=== PATIENT | male | born 1955 | race Caucasian/White ===

== ENCOUNTER 2024-02-17 13:22 | Outpatient (CLI) | payer MEDICARE, SELFPAY ==
--- NOTE | ~2024-02-17 | PE_ITS ---
EXAMINATION: PET_PETPSMAST_PT DATE: 02/17/2024 15:46 INDICATION: Prostate cancer TECHNIQUE: 3.969 mCi of Locametz Ga-68([id number]) was administered i.v. Low dose computed farrah ography (CT) images were acquired from the base of the brain to the base of the brain to the proximal thighs for attenuation correction and anatomic localization. Positron emission tomography (PET) imag es were acquired in the same distribution beginning 77 minutes after injection. Images including fuse d PET/CT images were reconstructed in axial, coronal, and sagittal planes. Automated exposure control technique was employed. The dose-length product was 922.10mGy-cm. COMPARISON: None FINDINGS: Musculoskeletal: There is diffuse patchy sclerosis of the bones with innumerable PSMA avid bone lesions becoming essen tially confluent throughout the visualized axial and appendicular skeleton consistent with widespread osseous metastatic disease. Head/neck: Typical pattern of symmetric physiologic increased activity in the lacrimal, parotid and submandibula r glands as well as along the mucosa of the nasal and oral cavities. No pathologically enlarged or PS MA avid cervical lymphadenopathy. Chest: No suspicious pulmonary nodules, pneumonia, pulmonary edema or pleural effusion. Heart size is normal . Atherosclerotic coronary artery calcifications. No pericardial effusion. Aortic valve calcification . Thoracic aorta is normal in caliber. No pathologically enlarged or PSMA avid thoracic lymphadenopat hy. Small sliding-type hiatal hernia. Abdomen/pelvis/proximal thighs: Physiologic renal accumulation and excretion of activity in the kidneys, bladder and along portions o f ureters. 5.4 cm low-attenuation photopenic cyst at the lower pole of the left kidney. Normal degree and slightly heterogenous pattern of increased uptake throughout the liver and spleen without radiol ogic correlate or dominant PSMA avid lesion. The gallbladder, pancreas and bilateral adrenal glands a re normal. Moderate uptake scattered throughout the bowels with typical duodenal and proximal jejunal predominance and without radiologic correlate, also likely physiologic. Normal appendix. There are 3 FDG avid left external iliac chain lymph nodes the largest almost FDG avid measures 2.4 x 1.9 cm wit h maximal SUV of 13.6 consistent with regional metastatic disease. Prostatomegaly measuring 5.2 x 5.1 cm with asymmetric increased uptake at the right side of the prostate with maximal SUV of 18.4 consi stent with primary prostate cancer. IMPRESSION: 1. Increased PSMA uptake within the right side of the enlarged prostate consistent with hemorrhage pr ostate cancer. 2. 3 PSMA avid left external iliac chain lymph nodes consistent with regional metastatic disease. 3. Extensive sclerosis of the bones with innumerable foci of associated increased uptake, becoming ne andrade confluent consistent with widespread osseous metastatic disease. Reviewed, dictated and finalized at location A. IMPRESSION: 1. Increased PSMA uptake within the right side of the enlarged prostate consist ent with hemorrhage prostate cancer. 2. 3 PSMA avid left external iliac chain lymph nodes consistent with regional m etastatic disease. 3. Extensive sclerosis of the bones with innumerable foci of associated increas ed uptake, becoming nearly confluent consistent with widespread osseous metasta tic disease.
== END 2024-02-17 13:23 | disposition home or self-care (01) ==
LOC: ANHIMG 13:24
PROVIDERS: Visit Provider Urology
DX: C61 Malignant neoplasm of prostate (principal)
CPT/HCPCS: 78815; A9596

== ENCOUNTER 2024-04-12 10:24 | Outpatient (CLI) | payer MEDICARE, SELFPAY ==
[2024-04-12 12:56] LABS: INR 1.1; Prothrombin Time 14.1 Seconds (11.1-14.7)
[2024-04-12 12:57] LABS: Partial Thromboplastin Time 29.1 Seconds (22.3-36.8)
== END 2024-04-12 10:25 | disposition home or self-care (01) ==
PROVIDERS: PCP Internal Medicine; Visit Provider Surgery
DX: C61 Malignant neoplasm of prostate (principal); Z01.818 Encounter for other preprocedural examination
CPT/HCPCS: 36415; 85610; 85730

== ENCOUNTER 2024-04-18 03:25 | Day surgery (SDC) | payer MEDICARE, SELFPAY ==
--- NOTE | 2024-04-11 15:40 | PC.NURSE ---
Report to the Outpatient Waiting Room, entrance under the green pavilion located off [facility], at time _10:30 AM on date ___04/18/24____. Planned Procedure Time: _12:30 PM . Time changes happen often and if your time is changed the preop area will call you the afternoon before. - You and your visitor will be asked to self-screen and do not enter if you have any COVID symptoms. - A mask is optional within the hospital at this time. Patients may have clear liquids (water, carbonated beverages, clear teas, apple juice) until 3 hours prior to surgery ( 9:30 AM)with a maximum of 20 ounces. - No food from midnight until time of surgery - Infants may have breast milk until 4 hours before surgery, infant formula 6 hours prior to surgery. - Children will be allowed to drink immediately following surgery. If applicable, please bring a bottle or sippy cup to assist with drinking. Juice, water, soda, and popsicles are readily available. For infants on formula, please bring formula the day of surgery. Pacifiers are allowed. Take the following medications with a SIP of water the morning of surgery: ___BUSPIRONE, SERTRALINE DO NOT STOP ANY OF YOUR OTHER PRESCRIPTION MEDICATIONS PRIOR TO SURGERY ?EXCEPT THE FOLLOWING Medications to discontinue per physician NONE Please no make-up, nail bengali, hairspray, perfume, deodorant, or body powder the day of surgery. No jewelry (including any body piercings) or valuables the day of surgery, leave them at home. Please take a shower or bath the night before, or the morning of, surgery with an antibacterial soap. Wear comfortable, loose fitting clothing. Children are encouraged to wear pajamas. - Jewelry must be removed prior to entering the operating room. Rings and piercings that are not removed may be cut off. - The hospital will not accept responsibility for valuables. - Please leave all valuables, including medications, at home the day of surgery. If you are going home after surgery, a licensed emergency vehicle driver must drive you home. - NO public transportation without another adult if you receive anesthesia. - We recommend that an adult stay with you for 24 hours following discharge. - We also recommend that you do not drive, make important decision, drink alcoholic beverages, or take any drugs that were not prescribed by your health care provider for at least 24 hours after your discharge time. Follow any additional instructions given to you from your surgeon. If you or anyone in your household have experienced Covid symptoms in the past week, please notify your surgeon or the nurse liaison at the phone number below for possible testing. Telephone instructions given to __PATIENT and asked if any additional questions and then verbalized understanding. Patient advised to call surgeon office or pre surgery nurse liaison [phone] if any additional questions.
[2024-04-11 15:47] VITALS: BMI 30.2
--- NOTE | ~2024-04-18 | XR_ITS ---
EXAMINATION: XR fl guide central line place DATE: 04/18/2024 13:01 INDICATION: Port placement. TECHNIQUE: A single intraoperative fluoroscopic view of the chest was obtained. I was not present. Fl uoroscopy exposure time was 36 seconds. COMPARISON: Chest single view 04/18/2024 FINDINGS: There is a left subclavian port with tip in right atrium. IMPRESSION: 1. Port tip in right atrium. Reviewed, dictated and finalized at location A.
--- NOTE | ~2024-04-18 | XR_ITS ---
EXAMINATION: XR chest port-a-cath/central DATE: 04/18/2024 11:59 INDICATION: Port placement. TECHNIQUE: A single frontal view of the chest was obtained on 2 radiographs. COMPARISON: PET/CT 02/17/2024 FINDINGS: There is no pneumonia, pleural effusion, or pneumothorax. The heart size is normal. There i s a left subclavian port with tip in proximal region. There is widespread sclerosis of the bones. IMPRESSION: 1. Poor tip in proximal right atrium. 2. Widespread sclerosis of the bones, consistent with metastatic disease. Reviewed, dictated and finalized at location A.
--- NOTE | 2024-04-18 07:42 | PM.SD2 ---
Same Day Admit/Disch: HPI History of Present Illness Chief complaint: prostate CA Narrative: Pradeep Meza is a 68 year old male with schizophrenia who will be receiving chemotherapy for prostate cancer. He is taken to surgery as an outpatient today for placement of a Port-A-Cath PMFSH Family History Family History Other Family history of malignant neoplasm Family history of osteoarthritis Social History Social History Smoking packs per day: 3 Smoking cigarettes per day: 60.0 Years smoked: 7 Smoking pack-years: 21.00 Smoking status: Former smoker Tobacco type: cigarettes Smoking end date: 10/17/82 Alcohol intake: never Living arrangements: with friend(s) Spiritual care concerns: No Same Day Admit/Disch: Med Pre-admit Medications Home Medications Medication Instructions Recorded Confirmed Type aripiprazole lauroxil 882 mg/3.2 882 mg IM MONTHLY 04/05/24 04/18/24 History mL suspension, ext.rel. IM syringe buspirone 5 mg tablet 5 mg PO TID 04/05/24 04/18/24 History deutetrabenazine 12 mg tablet 12 mg PO BID 04/05/24 04/18/24 History finasteride 5 mg tablet 5 mg PO DAILY 04/11/24 04/18/24 History naproxen 500 mg tablet 500 mg PO DAILY PRN Pain 04/11/24 04/18/24 History sertraline 50 mg tablet 50 mg PO DAILY 04/11/24 04/18/24 History cholecalciferol (vitamin D3) 1,250 50,000 unit PO WEEKLY 04/18/24 04/18/24 History mcg (50,000 unit) capsule ibuprofen 600 mg tablet 600 mg PO Q6H PRN pain #14 tabs 04/18/24 Rx oxycodone-acetaminophen 5 mg-325 0.5 - 1 tablet PO Q6H PRN pain #10 04/18/24 Rx mg tablet tabs Review of Systems Review of Systems All systems reviewed & are unremarkable except as noted in HPI and below (HPI) Exam Const: General: comfortable, no acute distress, alert and awake HENMT: Head: normocephalic and atraumatic Mouth: Yes Normal oral and palatal mucosa present Eyes: Conjunctivae: conjunctivae normal Pupils: Equal, round and reactive pupils present EOM: EOMs intact bilaterally Neck: Neck: normal visual inspection, no lymphadenopathy and nontender Resp: Effort & Inspection: normal respiratory effort Auscultation: clear to auscultation bilaterally Cardio: Rate: regular rate Rhythm: regular rhythm Heart sounds: no gallops, no murmurs and no rubs GI: Inspection: non-distended GI Palp: Yes Soft to palpation, No Tenderness to palpation present (GI), No Hepatomegaly present and No Splenomegaly present Skin: Lesions: no lesions Rashes: no rashes Neuro: General: no focal motor deficits and CN's II-XI intact bilaterally Cranial nerves: Yes Equal, round and reactive pupils present, Yes Bilaterally intact EOM present, Yes facial symmetry and Yes Midline tongue present Speech: normal speech Motor exam (neuro): 5/5 motor strength present throughout and Motor abnormalities not present Extrem: General: no clubbing, cyanosis or edema and edema Psych: Affect: normal affect Thought process: Normal thought process present Insight: Good insight present (Psych) DS: Summary Time Spent with Patient Time attestation: Total time spent providing and/or coordinating discharge services: DS: Admitting Diagnosis Discharge Date 04/18/2024 Admitting Diagnosis Prostate cancer-to be treated with chemotherapy Inadequate venous uufbnk-[id number]-V-Cath will be placed today under fluoroscopy and possibly with ultrasound. I discussed the procedure, risks, benefits, alternatives with the patient. All questions were answered. Complications were discussed as well. Patient wishes to go ahead. Schizophrenia DS: Discharge Diagnosis Discharge Diagnosis (1) Prostate cancer: Code(s): C61 - Malignant neoplasm of prostate Status: Chronic (2) Admission for fitting of Port-A-Cath: Code(s): Z45.2 - Encounter for adjustment and management of vascular access
--- NOTE | 2024-04-18 07:44 | WPDHPUPDATE1 ---
History and Physical Update Update Date/Time: 04/18/24 07:44 History and Physical has been reviewed, including an updated exam of the patient. There are NO changes in the patient's condition. Risks, benefits, and alternatives have been discussed and questions answered. Patient agrees to proceed with procedure.
[2024-04-18 10:16] VITALS: BP 147/66; PULSE 51; RESP 18; TEMP 36.7; O2SAT 99
[2024-04-18] MEDS: KETOROLAC 15 MG/ML VIAL (*BKC) IV PUSH (10:17)
--- NOTE | 2024-04-18 10:31 | P.PNAN_ITS ---
Anes - Initial Pre Proc Eval Procedure: Operation Date: 04/18/24 11:30 Proposed Procedures p Insertion Jesus Cath - Cristi Castillo MD Date/Time: 04/18/24 10:31 Surgeon: Cristi Castillo MD Pre Op Diagnosis: prostate CA Patient Data Age: 68 Gender: M Height: 1.78 m Weight: 96.4 kg Last Vital Signs Temp 36.7 C 04/18/24 10:16 Pulse 51 L 04/18/24 10:16 Resp 18 04/18/24 10:16 BP 147/66 H 04/18/24 10:16 Pulse Ox 99 04/18/24 10:16 O2 Del Method Room Air 04/18/24 10:16 Allergies Allergy/AdvReac Type Severity Reaction Status Date / Time haloperidol Allergy Unknown Other Verified 04/18/24 10:22 Home Medications Medication Instructions Recorded Confirmed Type aripiprazole lauroxil 882 mg/3.2 882 mg IM MONTHLY 04/05/24 04/18/24 History mL suspension, ext.rel. IM syringe buspirone 5 mg tablet 5 mg PO TID 04/05/24 04/18/24 History deutetrabenazine 12 mg tablet 12 mg PO BID 04/05/24 04/18/24 History finasteride 5 mg tablet 5 mg PO DAILY 04/11/24 04/18/24 History naproxen 500 mg tablet 500 mg PO DAILY PRN Pain 04/11/24 04/18/24 History sertraline 50 mg tablet 50 mg PO DAILY 04/11/24 04/18/24 History cholecalciferol (vitamin D3) 1,250 50,000 unit PO WEEKLY 04/18/24 04/18/24 History mcg (50,000 unit) capsule Patient hx anesthesia problems: none Family hx anesthesia problems: none Results Review: All pre-operative results and documents have been reviewed as part of the pre- operative evaluation. [facility] Family History Family History Other Family history of malignant neoplasm Family history of osteoarthritis Social History Social History Smoking packs per day: 3 Smoking cigarettes per day: 60.0 Years smoked: 7 Smoking pack-years: 21.00 Smoking status: Former smoker Tobacco type: cigarettes Smoking end date: 10/17/82 Alcohol intake: never Living arrangements: with friend(s) Spiritual care concerns: No Anes - Eval Final PreProcedure Day of Procedure 04/18/24 10:31 Patient weight: obese Heart: regular rate and rhythm Lungs: decreased breath sounds Airway: Mallampati scale class II Neurological: other (alert) Last oral intake: >/= 8 hours ASA classification: IV Emergent: no Anesthetic plan: proceed Anesthesia type and monitoring: general GIVS and standard monitoring Results Review: All pre-operative results and documents have been reviewed as part of the pre- operative evaluation. Informed Consent: The patient's anesthetic plan and its attendant risks and benefits were discussed with the patient/family/POA. Questions were solicited and answers provided to the satisfaction of the patient/family/POA.
[2024-04-18] MEDS: ceFAZolin 2 GM/D5W 50 ML 2 GM/50 ML BAG IVPB (10:49)
[2024-04-18] MEDS: BUPIVACAINE/EPINEPHRINE 0.5% 10 ML VIAL 20 ML INFILTRATE (11:08)
[2024-04-18] MEDS: HEPARIN SODIUM 1,000 UNITS/ML VIAL 1000 UNITS IV PUSH (11:17)
[2024-04-18 11:38] VITALS: BP 129/54; PULSE 51; RESP 18; O2SAT 97
[2024-04-18] MEDS: LACTATED RINGERS 1,000 ML 30 ML IV CONT (11:38)
[2024-04-18 12:00] VITALS: BP 132/61; PULSE 45; RESP 18; O2SAT 95
--- NOTE | 2024-04-18 12:08 | P.OP_ITS ---
Procedure Note - Detailed Date of Procedure 04/18/24 Pre-op Diagnosis Metastatic prostate cancer, inadequate venous access Post-op Diagnosis Same Procedure Performed Placement left subclavian vortex Port-A-Cath under fluoroscopy Surgeon Cristi Castillo MD Principal Archaeologist Mariaa Cook [facility] Anesthesia MAC and Local Indications Patient known to have both regional metastases of prostate cancer as well as extensive bony metastases. Plan is for him to have chemotherapy and he is taken to surgery now for placement of a Port-A-Cath for this purpose Findings None significant. Port-A-Cath tip in the distal SVC right atrial junction Description of Procedure Patient was taken to surgery and anesthesia was introduced. The left subclavian and left neck were prepped and draped. The proposed incision was marked on the skin under the left clavicle. Local was infiltrated in the area of the anticipated incision and in the deeper tissues. Incision was made and dissection was carried down through the subcutaneous. We continued the dissection below the pectoralis major fascia. I then created a subfascial pocket. Cautery was used for hemostasis. I then infiltrated local under the left clavicle. A single puncture was used to cannulate the left subclavian vein. A guidewire passed readily into the superior vena cava. This was documented by C-arm fluoroscopy. I then used fluoroscopy to measure the length of Port-A-Cath that would be needed. Port-A-Cath was cut to the appropriate length. I passed an introducer and sheath over the guidewire again under fluoroscopic guidance. I then removed the introducer and guidewire and passed the Port-A-Cath tubing through the sheath and into the superior vena cava. Under fluoroscopy the Port-A-Cath looked to be in good position. I then removed the sheath and recheck the fluoroscopic images. Port-A-Cath was in a good position in the distal SVC right atrial junction. I then checked a Port-A-Cath with heparin. It aspirated blood easily and flushed well with heparin. This was done several different times with good result. I sutured the Port-A-Cath to the pectoralis major muscle with 3-0 silk suture. I checked it again with similar good results of aspiration of blood and flushing with heparin. We then closed the wound with running suture of 2-0 Vicryl. The skin was closed with subcuticular running 4-0 Monocryl skin suture. The wound was dressed with Exofin surgical adhesive. Patient was then awakened and taken to recovery in good condition. Sponge and needle counts were correct x2. Estimated Blood Loss -5 Drains No Packing No Pathology None sent Complications None Condition Stable Disposition Same day [facility] Billing Surgery - Charge Forward: Surgery Billing (Placement Port-A-Cath under fluoroscopy)
[2024-04-18 12:30] VITALS: BP 155/67; PULSE 47; RESP 18
== END 2024-04-18 13:00 | disposition home or self-care (01) ==
PROVIDERS: PCP Internal Medicine; Visit Provider Surgery
PROC: (CPT 36561; principal; 2024-04-18 11:30)
DX: C61 Malignant neoplasm of prostate (principal); C79.51 Secondary malignant neoplasm of bone; F20.0 Paranoid schizophrenia; E66.9 Obesity, unspecified; Z68.30 Body mass index [BMI] 30.0-30.9, adult; Z79.1 Long term (current) use of non-steroidal anti-inflammatories (NSAID); Z87.891 Personal history of nicotine dependence; Z80.9 Family history of malignant neoplasm, unspecified
CPT/HCPCS: 36561; 36415; 77001; 85610; 85730; C1788; J0690; J1644; J1885; J2704; J3010; J7030; J7120

== ENCOUNTER 2024-10-11 09:18 | Outpatient (CLI) | payer MEDICARE, SELFPAY ==
--- NOTE | ~2024-10-11 | CT_ITS ---
EXAMINATION: CT abdomen pelvis w con DATE: 10/11/2024 11:32 INDICATION: Prostate cancer. TECHNIQUE: Computed tomography (CT) of the abdomen and pelvis was performed with 100 mL Omnipaque 350 intravenous contrast. Automated exposure control and iterative reconstruction technique were employe d. The dose-length product was 2047.25 mGy-cm. COMPARISON: PET/CT 02/17/2024 FINDINGS: The visualized portions of the lung bases demonstrate mild atelectasis. No pleural effusion . The heart size is normal. No pericardial effusion. There is a catheter tip in right atrium. There i s a moderate-sized sliding hiatal hernia. The liver, gallbladder, spleen, pancreas, and adrenal gland s are normal. There are cysts in the kidneys measuring up to 5.3 cm on the left. There is a parenchym al calcification in right kidney. The prostate is mildly enlarged. There is diverticulosis of the col on without evidence of diverticulitis. There are no dilated loops of bowel. The appendix is normal. T here are no pathologically enlarged lymph nodes. There is no free intraperitoneal fluid. There is sub cutaneous fat stranding in anterior abdominal wall, which may be injection sites or other inflammatio n. There is widespread sclerosis throughout all the bones. There are old bilateral rib fractures. IMPRESSION: 1. Stable widespread sclerosis throughout all of the bones, consistent with metastatic disease. 2. Moderate-sized sliding hiatal hernia. Reviewed, dictated and finalized at location A. BILITATION WORKER IMPRESSION: 1. Stable widespread sclerosis throughout all of the bones, consistent with met astatic disease. 2. Moderate-sized sliding hiatal hernia.
--- NOTE | ~2024-10-11 | NM_ITS ---
EXAMINATION: NM bone scan whole body DATE: 10/11/2024 13:37 INDICATION: Prostate cancer TECHNIQUE: 25.7 mCi Tc-99m HDP was administered intravenously. Delayed whole-body scintigrams were o btained. COMPARISON: CT dated 10/11/2024 and PET/CT dated 02/17/2024 FINDINGS: SuperScan with diffuse increased uptake of the bones. There is corresponding diffuse sclerosis eviden t on prior CT and diffuse increased bone activity on prior the PSMA PET/CT consistent with diffuse me tastatic prostate cancer. IMPRESSION: 1. Super scan consistent with widespread osseous metastatic prostate cancer throughout the axial and appendicular skeleton. Reviewed, dictated and finalized at location B. [employer] IMPRESSION: 1. Super scan consistent with widespread osseous metastatic prostate cancer thr oughout the axial and appendicular skeleton.
== END 2024-10-11 09:19 | disposition home or self-care (01) ==
PROVIDERS: PCP Internal Medicine; Visit Provider Internal Medicine Hematology & Oncology
DX: C61 Malignant neoplasm of prostate (principal); K44.9 Diaphragmatic hernia without obstruction or gangrene; R93.7 Abnormal findings on diagnostic imaging of other parts of musculoskeletal system
CPT/HCPCS: 74177; 78306; A9503; Q9967

== ENCOUNTER 2025-02-28 07:11 | Outpatient (CLI) | payer MEDICARE, SELFPAY ==
--- NOTE | ~2025-02-28 | CT_ITS ---
CT of the Abdomen and Pelvis: Indication: Prostate cancer Technique: 2.5 mm axial scans were obtained through the abdomen and pelvis following intravenous adm inistration of 100 cc of Omnipaque 350. Dose reduction technique was used on this scan by utilizing a utomated exposure control and iterative reconstruction technique. The dose-length product (DLP) was 8 05.93 mGy-cm. COMPARISON: 10/11/2024 Findings: Scans through the lung bases are unremarkable. Small hiatal hernia present with mild diste ntion of the distal esophagus. The liver, spleen, pancreas, gallbladder, adrenals and right kidney are within normal limits. Left re nal cyst present. No evidence of aortic aneurysm. No lymphadenopathy. No bowel obstruction or bowel wall thickening. There is no evidence to suggest acute appendicitis. Images through the pelvis were performed. Urinary bladder unremarkable. No gross pelvic mass seen. No ascites. 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 There is mild chronic loss of height of T9 and T10. Impression: Diffuse osteoblastic metastatic disease. Small hiatal hernia. Reviewed, dictated and finalized at [facility]. Impression: Diffuse osteoblastic metastatic disease. Small hiatal hernia.
--- NOTE | ~2025-02-28 | NM_ITS ---
EXAMINATION: NM bone scan whole body DATE: 02/28/2025 11:34 INDICATION: Prostate cancer TECHNIQUE: 25.8 mCi Tc-99m HDP was administered intravenously. Delayed whole-body scintigrams were o btained. COMPARISON: Bone scan dated FINDINGS: Persistent super scan with diffuse subtly heterogeneous increased uptake of the bones with diffuse sc lerosis evident on prior CT and diffuse increased uptake on prior PSMA PET/CT consistent with diffuse metastatic prostate cancer. IMPRESSION: 1. Unchanged super scan consistent with widespread osseous metastatic prostate cancer throughout the axial and appendicular skeleton. Reviewed, dictated and finalized at location A.
--- OUTSIDE RECORDS SUMMARY | 2025-02-28 07:14 | XMS_ITS | Clinical Summary ---
Author Organization [facility] Carlos carrington [facility] Address [address] [address] Care Team Providers Care Supervisor Education Name Role Phone Tres Gray MD Primary Care Provider [phone] Allergies Active Allergy Reactions Criticality Noted Date Comments Haloperidol Lactate Other (See Comments) 2023 . Medications enzalutamide (Xtandi) 80 mg Tablet Take by mouth daily. Active multivitamin (DAILY-TAWANA) tablet Take 1 Tablet by mouth daily. Active deutetrabenazi ne (Austedo) 12 mg Tablet tablet Take by mouth. Activ e busPIRone (BUSPAR) 5 mg tablet Take 5 mg by mouth 3 times daily. Active ARIPiprazole lauroxil ER (Aristada) 882 mg/3.2 mL suspension,ext ended rel syring Inject 882 mg by intramuscular injection one time only. Active predniSONE (DELTASONE) 5 mg tablet Take 1 Tablet (5 mg) by mouth 2 times daily with meals. 60 Tablet 6 Active OLANZapine (ZyPREXA ZYDIS) 5 mg Tablet, Rapid Dissolve Place 5 mg inside cheek daily at bedtime. Active Active Problems No known active problems Encounters Date Type Department Care Team Description 02/26/2025 Orders Only [facility] Oncology and Hematology - [place] [address] [place] [address] Zack Villatoro MD 02/19/2025 Orders Only [facility]ology - [place] [address] [place] [address] Zack Villatoro MD 02/18/2025 Orders Only [facility]ematology - [place] [address] [place] [address] Zack Villatoro MD Prostate cancer ([facility]/HCC) 02/04/2025 Orders Only [facility]ematology - [place] [address] Zack Villatoro MD Prostate cancer ([facility]/HCC) 01/25/2025 Orders Only [facility]ology - [place] [address] [place] [address] Zack Villatoro MD 01/24/2025 11:30 AM CDT Office Visit [facility] Hematology - [place] [address] [place] [address] Zack Villatoro MD Prostate cancer ([facility]) (Primary Dx) 01/22/2025 Orders Only [facility] Hematology - [place] [address] [place] [address] Zack Villatoro MD 01/21/2025 Orders Only [facility] Hematology - [place] [address] [place] [address] Zack Villatoro MD Prostate cancer ([facility]/HCC) 01/07/2025 Orders Only [facility] Hematology - [place] [address] [place] [address] Zack Villatoro MD Prostate cancer ([facility]/HCC) 12/24/2024 Orders Only [facility] Oncology and Hematology - [place] [address] [place] [address] Zack Villatoro MD Prostate cancer ([facility]/HCC) 12/20/2024 Orders Only [facility] Oncology and Hematology - [place] [address] [place] [address] Zack Villatoro MD 12/20/2024 Abstract [facility] Oncology and Hematology - [place] [address] [place] [address] Zack Villatoro MD 12/13/2024 1:[address] PATROL PILOT Office Visit [facility] Oncology and Hematology [facility] [address] [place] [address] Zack Villatoro MD Prostate cancer (CMS/HCC) (Primary Dx) 12/10/2024 Orders Only [facility] Oncology and Hematology [facility] [address] [place] [address] Zack Villatoro MD Prostate cancer (CMS/HCC) from Last 3 Months Family History Medical History Relation Name Comments Lung Cancer Father Relation Name Status Comments Father Social History Tobacco Use Types Packs/Day Years Used Date Smoking Tobacco: Former Cigarettes 3 11 1982 Smokeless Tobacco: Never Tobacco Cessation:Counseling Given: Not Answered Alcohol Use Standard Drinks/Week Comments Not Currently 0 (1 standard drink = 0.6 oz pur e alcohol) Sex and Gender Information Value Date Recorded Sex Assigned at Not on file Legal Sex Male 11:30 AM CDT Gender Identity Not on file Sexual Orientation Not on file Last Filed Vital Signs Vital Sign Reading Time Taken Comments Blood Pressure 139/84 01/24/2025 11:34 AM CDT Pulse 68 01/24/2025 11:34 AM CDT Temperature 36.2 C (97.1 F) 01/24/2025 11:34 AM CDT Respiratory Rate 15 01/24/2025 11:34 AM CDT Oxygen Saturation 95% 01/24/2025 11:34 AM CDT Inhaled Oxygen Concentration - - Weight 98.4 kg (217 lb) 01/24/2025 11:34 AM CDT Height 177.8 cm (5' 10 ) 03/26/2024 3:25 PM CDT Body Mass Index 31.14 03/26/2024 3:25 PM CDT Plan of Treatment Upcoming Encounters Date Type Department Care Team (Late st Contact Info) Description 03/07/2025 11:30 AM CDT Office Visit [facility] Oncology and Hematology [place] [address] [place] [address] Zack Villatoro MD [address] [place] [address] Health Maintenance Due Date Last Done Comments Pre-Diabetes and Diabetes Screening 1955 DTAP/TDAP/TD VACCINES (1 - Tdap) 1974 COLORECTAL SCREENING 2000 Colorectal Cancer Screening 2000 FIT-DNA Q 3 years 2000 FIT/FOBT Q 1 year 2000 Flex Sig/CT Colonography Q 5 years 2000 PNEUMOCOCCAL VACCINE 50+ YEARS (1 of 1 - PCV) 12/11/19 06 ZOSTER VACCINE (1 of 2) 2005 Abdominal Aortic Aneurysm (AAA) Screening 2020 INFLUENZA VACCINE (#1) 2024 RSV VACCINE (60+ or ) (1 - 1-dose 75+ series) 2030 Procedures Procedure Name Priority Date/Time Associated Diagnosis Comments BASIC METABOLIC PANEL Routine 02/15/2025 3:08 PM CDT COMPREHENSIVE METABOLIC PANEL Routine 02/15/2025 2:02 PM CDT COMPREHENSIVE METABOLIC PANEL Routine 01/24/2025 2:59 PM CDT BASIC METABOLIC PANEL Routine 01/24/2025 2:25 PM CDT COMPREHENSIVE METABOLIC PANEL Routine 01/24/2025 2:23 PM CDT BASIC METABOLIC PANEL Routine 01/18/2025 3:13 PM CDT COMPREHENSIVE METABOLIC PANEL Routine 01/18/2025 11:42 AM CDT BASIC METABOLIC PANEL Routine 01/03/2025 11:54 AM CDT COMPREHENSIVE METABOLIC PANEL Routine 01/03/2025 11:52 AM CDT CBC WITH DIFFERENTIAL Routine 12/13/2024 2:[address] PATROL PILOT from Last 3 Months Results * BASIC METABOLIC PANEL (02/15/2025 3:08 PM CDT) Only the most recent of4 resultswithin the time period is included. Blood us Zack Villatoro MD CHEMISTRY ORDERABLES Final Resu lt * COMPREHENSIVE METABOLIC PANEL (02/15/2025 2:02 PM CDT) Only the most recent of5 resultswithin the time period is included. Blood Zack Villatoro MD CHEMISTRY ORDERABLES Final Resu lt * CBC WITH DIFFERENTIAL (12/13/2024 2:[address] PATROL PILOT) Blood Zack Villatoro MD HEMATOLOGY ORDERABLES Final Res ult from Last 3 Months [facility] [employer] [facility] [place] [address] Care Teams Supervisor Education Relationship Specialty Start Date End Date Tres Gray MD [address] [facility] [address] [place] [address] PCP - General Internal Medicine 03/26/24
--- OUTSIDE RECORDS SUMMARY | 2025-02-28 07:14 | XMS_ITS | Encounter Summary ---
Author Organization [facility] JUAN [address] [facility] Address [address] [place] [address] Care Team Providers Care Hot Mill Operator Name Role Phone Tres Gray MD Primary Care Provider [phone] Encounter Details Date Type Department Care Team (Late Contact Info) Description 02/26/2025 Orders Only [facility] Oncology and Hematology - [place] [address] [place] [address] Zack Villatoro MD [address] [place] [address] Social History Tobacco Use Types Packs/Day Years Used Date Smoking Tobacco: Former Cigarettes 3 11 1 2 1982 Smokeless Tobacco: Never Alcohol Use Standard Drinks/Week Comments Not Currently 0 (1 standard drink = 0.6 oz pur e alcohol) Sex and Gender Information Value Date Recorded Sex Assigned at Not on file Legal Sex Male 11:30 AM CDT Gender Identity Not on file Sexual Orientation Not on file documented as of this encounter Plan of Treatment Upcoming Encounters Date Type Department Care Team (Late Contact Info) Description 03/07/2025 11:30 AM CDT Office Visit [facility] Oncology and Hematology - [place] [address] [place] [address] Zack Villatoro MD [address] [place] [address] documented as of this encounter Procedures Procedure Name Priority Date/Time Associated Diagnosis Comments COMPREHENSIVE METABOLIC PANEL Routine 02/15/2025 2:02 PM CDT documented in this encounter Results * COMPREHENSIVE METABOLIC PANEL (02/15/2025 2:02 PM CDT) Blood us Zack Villatoro MD CHEMISTRY ORDERABLES Final Resu lt documented in this encounter Visit Diagnoses Not on filedocumented in this encounter Care Teams Hot Mill Operator Relationship Specialty Start Date End Date Tres Gray MD [address] [facility] [address] [place] [address] PCP - General Internal Medicine 03/26/24 documented as of this encounter
--- OUTSIDE RECORDS SUMMARY | 2025-02-28 07:14 | XMS_ITS | Data Portability ---
Author Organization [place] [facility] Address [address] [facility] [place] [address] Assessment No assessment recorded. Plan of Treatment Reminders Order Date Submit Date Provider Last Modified By Organization Details Last Modified Time Details Appointments None recorded. Lab vitamin D, 25-hydroxy , total, serum 2017 [facility], [address] [place], [place] [address] [address], [address], [place], [address], 8 16:55:35 TSH + free T4, serum 2017 018 [facility], [address] [place] [address], [address], [place], [address], 8 16:55:36 lipid panel, serum 2017 018 [facility], [address] [place] [address], [address], [place], [address], 8 16:55:36 CMP, serum or plasma 2017 018 [facility], [address] [place] [address], [address], [place], [address], 8 16:55:36 CK (creatine kinase), total, serum 2017 018 [facility], [address] [place], [place] [address] [address], [address], [place], [address], 8 16:55:35 HbA1c (hemoglobi n A1c), blood 2017 018 [facility], [address] [facility] [address], [address], [place], [address], 8 16:55:36 Referral colonoscop y referral - Please call patient to schedule appt. Thank you 2017 018 vinicius Jenkins MD, [address] [facility], [place], [address], 8 09:49:03 Procedures None recorded. Surgeries None recorded. Imaging None recorded. Medication Orders Kenalog 40 mg/mL suspension for injection 2014 015 [facility] Not available 8 16:23:44 prednisone 20 mg tablet 2014 015 [facility] [employer] [address], [address] [place], [address], 8 16:24:04 omeprazole 20 mg capsule,de layed release 2014 015 [facility] [employer], [address] [place], [address], 8 16:23:59 Patient TargetsNo targets recorded. Patient InstructionsNo instructions recorded. Reason for Referral Colonoscopy Referral for Scr eening for malignant neoplasm of colon he has never had a colonoscopy Please call patient to schedule appt. Thank you Referring Physician: Nazario Skinner, Family Medicine, Encounter Date: 01/06/2018 Problems Name Problem SNOMED Code Status Onset Date Resolution Date Notes Provider Name and Address Organization Details Recorded Time Paranoid schizophren ia 42016525 Active 2017 Nazario Skinner PA-C Attn: Cortez cedeño,[address] [place], [address], [facility] 8 16:50:17 Diabetes mellitus screening Active 2017 Nazario Skinner PA-C Attn: Cortez cedeño,[address] [facility], [place], [address], [place] [facility] 8 16:52:23 Hyperlipide jair screening Active 2017 Nazario Skinner PA-C Attn: Cortez g,[address] [facility], [place], [address], [place] [facility] 8 16:53:02 Obese 264629047 Active 2017 Nazario Skinner PA-C Attn: Accountpriscilla g,[address] [facility], [place], [address], [place] [facility] 8 16:53:20 Screening for malignant neoplasm of prostate Active 2017 brother age 68 of prostate cancer Nazario Skinner PA-C Attn: Accountpriscilla g,[address] [place], [address], [place] [facility] 8 16:55:09 Screening for malignant neoplasm of colon Active 2017 Nazario Skinner PA-C Attn: Accountin g,[address] [facility], [place], [address], [place] [facility] 8 16:55:53 Shoulder strain 147324782 Active aNzario Skinner PA-C Attn: Accountin g,[address] [place], [address], [place] [facility] 5 12:32:44 Gastroesoph ageal reflux disease 169110270 Active Nazario Skinner PA-C Attn: Accountin g,[address] [facility], [place], [address], [place] [facility] 5 12:32:44 Notes:Miriam Long is his Ps ychiatrist : at [place] Problem Notes None recorded. Medical Equipment None Reported. Allergies Allergen ID Allergen Name Allergen Category Reaction Reaction Severity Criticality Documentation Date Start Date Code Code System Note Provider Name and Address Organization Details Recorded Time 02323 Haldol medicatio n Not available Not available Not available 09/29/2015 32178 9 [facility] KRIST[place], [place] - [facility] 5 12:16:40 Medications Name Sig Start Date Stop Date Status Note LastModified by Organization Details LastModified Time Prescriptio n - Renewal 01/06 completed Not Available Not Available Not Available ibuprofen 800 mg tablet take 1 tablet 3 times daily by oral route with food or milk 01/06 completed Not Available Not Available Not Available prednisone 20 mg tablet Take 2 tablets twice a day by oral route as directed for 2 days. 01/06 completed Not Available Not Available Not Available Kenalog 40 mg/mL suspension for injection Take 40 mg by injection route. 01/06 completed Not Available Not Available Not Available Mellaril 200 mg tablet Take 1 tablet twice a day by oral route. active Not Available Not Available No t Available omeprazole 20 mg capsule,del ayed release 1 cap po qd 01/06 completed Not Available Not Available Not Available trihexyphen idyl 2 mg tablet Take 1 tablet twice a day by oral route. active Not Available Not Available No t Available Vitals Date Recorded Body height Body mass index (BMI) Body weight Oxygen saturation Oxygen saturation in Arterial blood by Pulse oximetry Heart rate Body temperature Systolic blood pressure Diastolic blood pressure Provider Name and Address Organization Details Last Updated DateTime 8 177.8 cm 35.4 kg/m2 542609. 91 g 92 % 92 % 77 /min 98.3 [degF] 112 mm[Hg] 68 mm[Hg] Aide Kolb [facility] 8 16:23:02 Date Recorded Body weight Oxygen saturation Oxygen saturation in Arterial blood by Pulse oximetry Body height Body mass index (BMI) Body temperature Heart rate Systolic blood pressure Diastolic blood pressure Provider Name and Address Organization Details Last Updated DateTime 5 152287. 1688 g 93 % 93 % 177.8 cm 34.4 kg/m2 98 [degF] 61 /min 120 mm[Hg] 90 mm[Hg] Aide Kolb [facility] 5 12:20:07 Social History None recorded. Functional Status None recorded. Mental Status None recorded. Family History Nothing Reported. Medical History Condition Response Acid Reflux (GERD) Y Other Y Past Encounters Encounter ID Performer Location Encounter Start Date Encounter Closed Date Diagnosis/Indication Diagnosis SNOMED-CT Code Diagnosis ICD10 Code Diagnosis Note [id number] ALIZE Shipley (Adult Med) [address] [place] [address] 09/29/2015 10:16:50 09/29/2015 13:32:16 Shoulder strain 713057967 S46.012D 1 year ago , heavy gate dragged his arm down and back ... Gastroesop hageal reflux disease 483944390 K21.9 [id number] MD Saul Renee (Adult Med) [address] [place] [address] 01/06/2018 15:47:52 01/10/2018 09:36:11 Paranoid schizophrenia 59119705 F20.0 Diabetes m ellitus screening 500301539 Z13.1 Hyperlipid emia screening 824686108 Z13.220 Obese 091656541 E66.9 Screening for malignant neoplasm of prostate 173411255 Z12.5 Screening for malignant neoplasm of colon 025222584 Z12.11 Gastroesop hageal reflux disease 923879675 K21.9 Health Concerns Section Related Observation LastModified by Organization Detai ls LastModified Time None Recorded Concern Status LastModified by Organization Details LastModified Time None Recorded Advance Directives Directive None Recorded Payers Encounter Date Sequence Insurance Name Policy Number Policy Payne Covered Member ID Payne Member ID Guarantor Name 09/29/2015 1 [facility] PRIOR TO 04/16/2021 (MEDICAID REPLACEMENT - HMO) Pradeep Meza [id number] Pradeep Meza 01/06/2018 1 [facility] PRIOR TO 04/16/2021 (MEDICAID REPLACEMENT - HMO) Pradeep Meza [id number] Pradeep Meza Notes Date Note Type Note Provider Name and Address Organization Details Recorded Time 01/06/2018 text/html needs drivers license paper filled out Nazario Skinner PA-C Attn: Accounting,[address] [place], [address], [facility] 01/09/2018 12:55:46
== END 2025-02-28 07:12 | disposition home or self-care (01) ==
PROVIDERS: PCP Internal Medicine; Visit Provider Internal Medicine Hematology & Oncology
DX: C61 Malignant neoplasm of prostate (principal); K44.9 Diaphragmatic hernia without obstruction or gangrene; C79.51 Secondary malignant neoplasm of bone
CPT/HCPCS: 74177; 78306; A9503; Q9967